=== PATIENT | male | born 1955 | race Caucasian/White ===

== ENCOUNTER → 2020-10-13 02:41 | Outpatient (CLI) | payer MEDICARE, SELFPAY ==
[2020-10-13 20:23] LABS: SARS-CoV-2 RNA PCR Negative
== END ==
PROVIDERS: PCP Family Medicine; Visit Provider Surgery
DX: Z01.812 Encounter for preprocedural laboratory examination (principal); Z20.822 Contact with and (suspected) exposure to COVID-19
CPT/HCPCS: C9803; U0003; U0005

== ENCOUNTER 2020-10-16 01:24 | Day surgery (SDC) | payer MEDICARE, SELFPAY ==
[2020-10-11 13:44] VITALS: BMI 35.2
[2020-10-16] VITALS (10 sets, daily range): BP systolic 96–162; BP diastolic 54–81; PULSE 48–55; RESP 12–20; TEMP 36.2; O2SAT 94–99
--- NOTE | 2020-10-16 11:10 | WPDHPUPDATE1 ---
History and Physical Update Update Date/Time: 10/16/20 11:10 History and Physical has been reviewed, including an updated exam of the patient. There are NO changes in the patient's condition. Risks, benefits, and alternatives have been discussed and questions answered. Patient agrees to proceed with procedure.
[2020-10-16] MEDS: ACETAMINOPHEN 500 MG TABLET 1000 MG PO (11:33)
[2020-10-16] MEDS: LACTATED RINGERS 1,000 ML 30 ML IV CONT (11:35)
[2020-10-16] MEDS: KETOROLAC 15 MG/ML VIAL (*BKC) IV PUSH (11:38)
--- NOTE | 2020-10-16 11:54 | WPDANESEPPF ---
Anes - Initial Pre Proc Eval Procedure: Operation Date: 10/16/20 13:00 Proposed Procedures p Rectal Exam Under Anesthesia, Excisional Biopsy Anal Mass, Hemorrhoidectomy - Obdulia Still MD Date/Time: 10/16/20 11:54 Surgeon: Obdulia Still MD Pre Op Diagnosis: anal mass Patient Data Age: 65 Gender: M Height: 5 ft 10 in Weight: 111.36 kg Allergies Allergy/AdvReac Type Severity Reaction Status Date / Time Sulfa (Sulfonamide Allergy Intermediate EXTREMITIES Verified 10/16/20 10:51 Antibiotics) SWELL Home Medications Medication Instructions Recorded Confirmed Type cholecalciferol (vitamin D3) 10 10 mcg PO DAILY 10/10/20 10/16/20 History mcg (400 unit) capsule dolutegravir 50 mg tablet 50 mg PO DAILY 10/10/20 10/16/20 History emtricitabine 200 mg-rilpivirine 1 tablet PO DAILY 10/10/20 10/16/20 History 25 mg-tenofovir disprox 300 mg tablet pravastatin 80 mg tablet 80 mg PO DAILY 10/10/20 10/16/20 History amoxicillin 250 mg PO Q12H 10/11/20 10/16/20 History furosemide [Lasix] 20 mg PO BID 10/11/20 10/16/20 History loratadine 10 mg PO DAILY 10/11/20 10/16/20 History Patient hx anesthesia problems: none Family hx anesthesia problems: none PMFSH Past Medical History Medical History (Updated 10/16/20 @ 11:54 by Bradley Pavon MD) Essential hypertension HIV (human immunodeficiency virus infection) Hyperlipidemia Surgical History Surgical History H/O spinal fusion History of left hip replacement Status post bilateral foot surgery Family History Family History Father Dementia Social History Social History Smoking status: Never smoker Second hand tobacco smoke exposure: No Alcohol intake: current Alcohol use details: STATES MAYBE 1-2 GLASSES OF WINE/MONTH Substance use: never Substance use type: does not use Living arrangements: alone Spiritual care concerns: No Anes - Eval Final PreProcedure Day of Procedure 10/16/20 11:54 Patient weight: obese Heart: regular rate and rhythm Lungs: clear to auscultation Airway: Mallampati scale class III Neurological: alert and oriented Last oral intake: >/= 8 hours ASA classification: III Emergent: no Anesthetic plan: proceed Anesthesia type and monitoring: general ETT and standard monitoring Informed Consent: The patient's anesthetic plan and its attendant risks and benefits were discussed with the patient/family/POA. Questions were solicited and answers provided to the satisfaction of the patient/family/POA.
[2020-10-16] MEDS: ceFAZolin 2 GM/D5W 50 ML 2 GM/50 ML BAG IVPB (13:02)
[2020-10-16] MEDS: LIDOCAINE HCL 2% GEL UROJET 10 ML PKG MUCOUS MEM (13:27)
--- NOTE | 2020-10-16 13:50 | PM.PROC ---
Procedure Note - Detailed Date of procedure: 10/16/20 Pre-op diagnosis: anal mass Post-op diagnosis: same Procedure performed: Exam under anesthesia, excisional biopsy anal mass x 3 Description of procedure: The patient was taken to the operating room and placed in the modified lithotomy position. After adequate induction of general anesthesia, the patient was prepped and draped in the normal sterile fashion. A time-out was then done to verify the patient's identity, as well as the procedure being performed. A bilateral pudendal block was then done with local anesthetic. I began by doing a digital examination. No pathology was noted in the rectum, however in the anal canal there was noted to be friable indurated masses. 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 There was also some external hemorrhoids noted. I then went ahead and placed the [place] retractor into the anal canal. At this point, went ahead and tried to excise these friable, indurated areas. This was difficult as these masses were quite friable. I did try to excise these at the base as they are all located between the 3:00 a.m. and 7 o'clock position in the anal canal. The largest of this was excised using the LigaSure device at the base. It will be sent to pathology for further review. Of note, the tissue at the base was still abnormal appearing however I did to get into submucosal layers. I then excised 2 other areas of similar appearance. Given the friability and induration, the decision was made to not proceed with hemorrhoidectomy. The hemorrhoids were noted to be noninflamed. I then placed a piece Gelfoam covered with lidocaine jelly into the rectal vault. The patient tolerated the procedure well and was extubated in the operating room postoperatively. He will be transferred to the recovery room in stable condition. Anesthesia: GETA Surgeon: Obdulia Still MD Estimated blood loss (mL): 25 Drains: No Packing: Yes Pathology: yes Complications: No immediate complications Condition: stable Disposition: PACU Findings: Friable, indurated anal mass x3
[2020-10-16] MEDS: fentaNYL CITRATE INJ (*CRX) 100 MCG/2 ML VIAL 25 MCG IV PUSH ×2 (14:12→14:22)
[2020-10-16] MEDS: oxyCODONE HCL (*CRX) 5 MG TAB IR PO (14:55)
== END 2020-10-16 16:45 | disposition home or self-care (01) ==
PROVIDERS: PCP Family Medicine; Visit Provider Surgery
PROC: (CPT 46999; principal; 2020-10-16 13:00)
DX: C21.1 Malignant neoplasm of anal canal (principal); K64.4 Residual hemorrhoidal skin tags; I10 Essential (primary) hypertension; E78.5 Hyperlipidemia, unspecified; Z21 Asymptomatic human immunodeficiency virus [HIV] infection status; Z98.1 Arthrodesis status; E66.9 Obesity, unspecified; Z68.36 Body mass index [BMI] 36.0-36.9, adult
CPT/HCPCS: 46999; 88305; 88342; A9270; C9803; J0690; J1100; J1885; J2250; J2405; J2704; J3010; J7120; U0003; U0005

== ENCOUNTER 2024-10-24 09:56 | Outpatient (CLI) | payer MEDICARE, SELFPAY ==
--- NOTE | ~2024-10-24 | US_ITS ---
Abdominal Sonogram: Real-time sonographic imaging of the abdomen was performed. Clinical History: Fatty liver Findings: The liver appears echogenic with no evidence of mass lesion or bile duct dilatation. Main portal vein demonstrates normal direction of flow. The spleen is normal in size without evidence of f ocal lesion. The gallbladder is absent, compatible prior cholecystectomy. The common bile duct measu res 3 mm. The visualized pancreas, aorta, and IVC are unremarkable. The right kidney measures 13.0 cm in length and the left kidney measures 10.2 cm. There is no hydronephrosis or renal calculus. Remi ateral renal cysts are present. Impression: Diffuse fatty infiltration of liver. Status post cholecystectomy. Bilateral renal cysts. Largest cyst is at the right lower pole measuring 6.4 cm, with mild complexity /septation. Reviewed, dictated and finalized at [facility]. Impression: Diffuse fatty infiltration of liver. Status post cholecystectomy. Bilateral renal cysts. Largest cyst is at the right lower pole measuring 6.4 cm , with mild complexity/septation.
--- NOTE | ~2024-10-24 | US_ITS ---
US pelvic limited Ordering provider: Paradise Adhikari MD History: . Abn CT scan of Bladder . Comparison: None. Technique: Ultrasound urinary bladder. Findings/impression: Prevoid volume is 39.83 mL. Post warranted volume is 0.6 mL. Echogenic focus suggestive of a stone is seen measuring 2.1 x 1.2 x 2 cm. Confirmation by KUB is advi sed Reviewed, dictated and finalized at location A.
== END 2024-10-24 09:57 | disposition home or self-care (01) ==
LOC: MICIMG 09:58
PROVIDERS: PCP Family Medicine; Visit Provider Family Medicine
DX: K76.0 Fatty (change of) liver, not elsewhere classified (principal); R94.31 Abnormal electrocardiogram [ECG] [EKG]
CPT/HCPCS: 76700; 76857

== ENCOUNTER 2025-05-03 10:24 | Outpatient (CLI) | payer MEDICARE, SELFPAY ==
--- NOTE | ~2025-05-03 | US_ITS ---
EXAMINATION: US renal BI, 05/03/2025 10:33 CDT HISTORY: bilateral renal cysts Comparison: None Technique: Garner-scale and color Doppler images were obtained. Findings: KIDNEYS: The renal cortices are thinned and echogenic, no hydronephrosis Right Kidney: Right kidney 13.7 x 4.9 x 6.7 cm, there are multiple simple appearing cysts however there is a dominant complex cyst with thickened septations inferior pole 6.2 x 6.8 cm. Left Kidney: Left kidney 10.9 x 6.2 x 5.1 cm, multiple simple appearing cysts the largest inferior pole 3.2 x 3.3 cm. Bladder: There is a calculus within the bladder measuring 1.3 x 1.2 cm. . Impression: 1. Medical renal disease without obstruction. 2. Complex appearing right renal cyst incompletely evaluated. Contrast-enhanced CT or MRI recommended Reviewed, dictated and finalized at location P. Impression: 1. Medical renal disease without obstruction. 2. Complex appearing right renal cyst incompletely evaluated. Contrast-enhanced CT or MRI recommended
== END 2025-05-03 10:25 | disposition home or self-care (01) ==
PROVIDERS: PCP Family Medicine; Visit Provider Family Medicine
DX: N28.1 Cyst of kidney, acquired (principal); N28.9 Disorder of kidney and ureter, unspecified
CPT/HCPCS: 76770